=== PATIENT | male | born 2000 | race Caucasian/White ===

== ENCOUNTER → 2023-01-25 05:16 | Emergency (ER) | payer OTHER ==
[~2023-01-25] VITALS: Ht 180.3 cm; Wt 113.4 kg
[2023-01-25 05:16] VITALS: BP_SYST 159; BP_SYST 179; BP_DIAS 90
--- NOTE | 2023-01-25 05:16 | NUR ---
PT TO [facility] WITH [facility]
[2023-01-25 05:28] VITALS: BP 146/85
--- NOTE | 2023-01-25 05:29 | NUR ---
Patient resting in bed, A/Ox4, chest rise and fall symmetrical, no c/o pain or s/s of distress, [employer] officer by patient.
--- NOTE | 2023-01-25 05:30 | NUR ---
ER physician assessing patient.
--- NOTE | 2023-01-25 07:34 | NUR ---
PATIENT BIB [facility] [employer]. PATIENT EXAMINED BY DR. TAYLOR. PATIENT MEDICALLY CLEARED AND RELEASED IN CUSTODY IN STABLE CONDITION. ORIGINAL PRE-BOOK FORM GIVEN TO OFFICER GENARO
== END ==
LOC: MED 05:16
DX: Z02.89 Encounter for other administrative examinations (principal); V43.52XA Car driver injured in collision with other type car in traffic accident, initial encounter; Y93.89 Activity, other specified; Y92.410 Unspecified street and highway as the place of occurrence of the external cause; Y99.8 Other external cause status
CPT/HCPCS: 99283